=== PATIENT | female | born 1965 | race Two or more races ===

== ENCOUNTER 2024-09-27 20:15 | Emergency (ER) | payer OTHER ==
[2024-09-27 20:22] VITALS: BMI 30.7
[2024-09-27] MEDS ORDERED: ACETAMINOPHEN INJECTION 100 ML ONE (21:11)
[2024-09-27] MEDS ORDERED: FAMOTIDINE 20 MG/50 ML IVPB 20 MG/50 ML MG IVPB ONE (21:11)
[2024-09-27 21:22] LABS: EPI CELLS 5 /uL (0-25.1); HYALINE CASTS 0 /uL (0-3.1); URINE APPEARANCE CLEAR; URINE BACTERIA 420 /uL (0-1359); URINE BILIRUBIN NEGATIVE (NEGATIVE); URINE COLOR YELLOW; URINE GLUCOSE (UA) NEGATIVE (NEGATIVE); URINE KETONE NEGATIVE (NEGATIVE); URINE LEUK ESTERASE 1+ (NEGATIVE); URINE NITRITE NEGATIVE (NEGATIVE); URINE PROTEIN NEGATIVE (NEGATIVE); URINE RBC 27 /uL (0-23.9); URINE UROBILINOGEN 1.0 mg/dL (0.2-1.0); URINE WBC 12 /uL (0-25.8)
[2024-09-27] MEDS: ACETAMINOPHEN 1000 MG/100 ML BAG IVPB ONE (21:29)
[2024-09-27] MEDS: FAMOTIDINE 20 MG/50 ML IVPB 20 MG/50 ML MG IVPB ONE (21:39)
[2024-09-27 21:44] LABS: ABSOLUTE IMMATURE GRANULOCYTES 0.01 x10^3/uL (0.0-0.031); BASOPHILS # 0.01 x10^3/uL (0.01-0.08); EOSINOPHIL % 0.2 % (0.7-5.8); EOSINOPHILS # 0.01 x10^3/uL (0.04-0.36); MCHC 33.1 g/dl (32.2-35.5); MEAN CELL VOLUME 96.8 fl (79.4-94.8); MEAN PLT VOLUME 10.1 fl (9.4-12.3); MONOCYTE # 0.57 x10^3/uL (0.24-0.86); MONOCYTE % 13.0 % (4.7-12.5); RDW 11.3 % (12.4-16.4)
[2024-09-27 21:45] LABS: BG HCT 61.0 % (32.4-45.2); INR 1.11 (0.83-1.09); PROTHROMBIN TIME (PATIENT) 12.2 SEC (9.7-13.0); VENOUS BASE EXCESS -0.5 mmol/L (-2-2); VENOUS O2 SATURATION 45.4 % (70-80); VENOUS PCO2 44.7 mmHg (38-52); VENOUS PH 7.369 (7.310-7.410)
[2024-09-27 21:48] LABS: ACTIVATED PTT 33.2 SECONDS (25.2-36.5)
[2024-09-27 22:08] LABS: CO2 27.0 mmol/L (21-32); GLUCOSE,RANDOM 97.0 mg/dL (74-106)
[2024-09-27 22:11] LABS: CREATININE 0.7 mg/dL (0.55-1.3); SGOT/AST 21.0 U/L (15-37); SGPT/ALT 32.0 U/L (13-61)
[2024-09-27 22:12] LABS: TOT PROT 6.9 g/dl (6.4-8.2)
[2024-09-27 22:14] LABS: ALK PHOS 81.0 U/L (45-117)
[2024-09-27 22:26] VITALS: RESP 14; TEMP 99.3
[2024-09-27] MEDS ORDERED: CEFTRIAXONE 1 GM/50 ML BAG ONE (22:27)
[2024-09-27 23:18] VITALS: BP 126/76; PULSE 80
== END 2024-09-27 23:19 | disposition home or self-care (01) ==
LOC: JER 20:15
PROC: 3E033GC Introduction of Other Therapeutic Substance into Peripheral Vein, Percutaneous Approach (ICD-10-PCS; principal; 2024-09-27)
PROC: 3E033NZ Introduction of Analgesics, Hypnotics, Sedatives into Peripheral Vein, Percutaneous Approach (ICD-10-PCS; 2024-09-27)
PROC: 3E03329 Introduction of Other Anti-infective into Peripheral Vein, Percutaneous Approach (ICD-10-PCS; 2024-09-27)
DX: N30.00 Acute cystitis without hematuria (principal); A69.20 Lyme disease, unspecified; R21 Rash and other nonspecific skin eruption; M79.10 Myalgia, unspecified site; R50.9 Fever, unspecified; R10.30 Lower abdominal pain, unspecified; L98.9 Disorder of the skin and subcutaneous tissue, unspecified
CPT/HCPCS: 36415; 71045-TC-FY; 80053; 81003; 82803; 83605; 83690; 84484; 85025; 85610; 85730; 86618; 86850; 86900; 86901; 87040; 87086; 87637-QW; 93005; 93010; 99285-25